=== PATIENT | male | born 1990 | race Two or more races ===

== ENCOUNTER 2023-05-28 02:43 | Emergency (ER) | payer OTHER, SELFPAY ==
[2023-05-28 02:47] VITALS: BP 136/85
[2023-05-28 03:06] LABS: Hematocrit 39.7 % (39.0-52.0); Mean Corp Hgb Conc. 35.3 g/dL (33.0-37.0); Mean Corpuscular Hgb 30.9 pg (27.0-31.0); Mean Corpuscular Volume 87.6 fL (80.0-94.0); Mean Platelet Volume 9.3 fL (7.4-10.4); Platelet Count 349 10^3/uL (130-400); Red Blood Cell Count 4.53 10^6/uL (4.70-6.10); Red Cell Dist. Width 12.1 % (11.5-14.5); White Blood Cell Count 10.8 10^3/uL (4.8-10.8)
[2023-05-28 03:07] LABS: Urine Albumin Negative (Neg - Trace); Urine Bilirubin Negative (Negative); Urine Character Clear (Clear); Urine Color Yellow; Urine Glucose Negative (Negative); Urine Ketone Negative (Negative); Urine Leukocyte Negative (Negative); Urine Nitrite Negative (Negative); Urine Occult Blood 3+ (Negative); Urine Specific Gravity 1.025 (<1.030); Urine Urobilinogen Negative (Neg - 1+)
[2023-05-28 03:18] LABS: Urine Squamous Cell 0-2 /LPF (Few)
[2023-05-28 03:19] LABS: Urine Red Blood Cell 60-70 /HPF (0-2); Urine White Cell None Seen /HPF (0-5)
[2023-05-28 03:21] LABS: ALT (SGPT) 40 U/L (0-50); AST (SGOT) 30 U/L (17-59); Albumin 4.6 g/dl (3.5-5.0); Alkaline Phosphatase 111 U/L (38-126); Blood Urea Nitrogen 17 mg/dl (9-20); Calcium 9.2 mg/dl (8.4-10.2); Carbon Dioxide 25 mmol/L (22-30); Chloride 107 mmol/L (98-107); Glucose 134 mg/dl (70-99); Sodium 140 mmol/L (135-145); Total Bilirubin 0.5 mg/dl (0.2-1.3); Total Protein 7.2 g/dl (6.3-8.2); eGFR > 60.00
--- NOTE | 2023-05-28 03:38 | ED.GENMED ---
History of Present Illness
<MAYRA Perez - Last Filed: 05/28/23 06:13>
General
Chief Complaint: Flank Pain
Source: patient and significant other
Exam Limitations: none
Time Seen by Provider: 05/28/23 03:31
Nursing documentation reviewed up to this point in time: agreed with
Travel History
Have you had any contact with someone who has COVID-19?: No
Do you have any symptoms of coronavirus? Fever > 100 degrees, chills, cough, shortness of breath, sore throat, loss of taste or smell, muscle aches, or headache?: No
History of Present Illness
History of Present Illness:
Pt is a 32 yo male with PMH of renal calculi who presents today with sudden right sided flank pain that began at 1:40 am and woke him up. Pt has taken ibuprofen, 2 percocet, flomax, and zofran since then, last dose of percocet at 2 am. Patient has
associated nausea and vomiting. States pain is 8-9/10. Denies other abdominal pain, hematuria, fever.
Past History
<MAYRA Perez - Last Filed: 05/28/23 06:13>
Past History
ED Past Medical History: Psychiatric (depression takes Fluoxitine) and Other (Kidney stones)
ED Past Surgical History: Other (Abdominal surgery as a child)
Social History
Tobacco: Non-smoker
Drug: None
Personal: Single
Living: with family
Employment: Student
Family History
Family History: Other
Review of Systems
<MAYRA Perez - Last Filed: 05/28/23 06:13>
Review of Systems
Allergies reviewed?: Yes
All Other Systems: ROS reviewed and negative except as documented in HPI and ROS
Phy Exam
<MAYRA Perez - Last Filed: 05/28/23 06:13>
General Physical Exam
General Presentation: moderate distress
General Skin: warm and dry
General Mental: alert
General Hydration: appears well hydrated
ENT Exam
ENT Exam: neck supple, normocephalic and swallowing well
Eye Exam
Eye Exam: PERRL and conjunctiva normal
Skin Exam
Skin Exam: normal color and warm/dry
Psychiatric Exam
Psychiatric Exam: normal mood/affect
Course
<MAYRA Perez - Last Filed: 05/28/23 06:13>
Orders/Labs/Results
Orders:
Orders
05/28/23 02:57
CMP [Comprehensive Metabolic Panel] Urgent
Complete Blood Count/With Diff Urgent
Manual Differential Urgent
Urinalysis Urgent
Date Specimen was Collected: 05/28/23
Time Specimen was Collected: 02:50
Urine Microscopic Urgent
Date Specimen was Collected: 05/28/23
Time Specimen was Collected: 02:50
05/28/23 03:10
Abdomen/Pelvis wo Contrast CT [CT Abd/pelvis Wo Iv Cont] Urgent
Comment:
Reason For Exam: right flank pain
05/28/23 03:39
HYDROmorphone [Dilaudid] 1 mg IV NOW STA
Ondansetron Injectable [Zofran] 4 mg IV NOW STA
05/28/23 04:10
Ketorolac [Toradol] 30 mg IV NOW STA
05/28/23 04:11
0.9% Sodium Chloride 1000 ml [Nss] 1,000 ml IV BOLUS
Abnormal Lab Results
05/28/23
02:57
RBC 4.53 L 10^6/uL
(4.70-6.10)
Segmented Neutrophils 37 L %
(42-75)
Glucose 134 H mg/dl
(70-99)
Urine Occult Blood 3+ A
(Negative)
Urine RBC 60-70 A /HPF
(0-2)
05/28/23 02:57
05/28/23 02:57
Vital Signs
Initial and Last Documented VS:
Initial Vital Signs
Temp Pulse Resp BP Pulse Ox
97.9 F 90 26 136/85 100
05/28/23 02:47 05/28/23 02:47 05/28/23 02:47 05/28/23 02:47 05/28/23 02:47
Last Documented Vital Signs
Temp Pulse Resp BP Pulse Ox
97.9 F 91 21 123/83 99
05/28/23 02:47 05/28/23 04:47 05/28/23 04:47 05/28/23 06:00 05/28/23 04:00
<Destin Lopez, DO - Last Filed: 05/28/23 06:20>
Orders/Labs/Results
Orders:
Orders
05/28/23 02:57
CMP [Comprehensive Metabolic Panel] Urgent
Complete Blood Count/With Diff Urgent
Manual Differential Urgent
Urinalysis Urgent
Date Specimen was Collected: 05/28/23
Time Specimen was Collected: 02:50
Urine Microscopic Urgent
Date Specimen was Collected: 05/28/23
Time Specimen was Collected: 02:50
05/28/23 03:10
Abdomen/Pelvis wo Contrast CT [CT Abd/pelvis Wo Iv Cont] Urgent
Comment:
Reason For Exam: right flank pain
05/28/23 03:39
HYDROmorphone [Dilaudid] 1 mg IV NOW STA
Ondansetron Injectable [Zofran] 4 mg IV NOW STA
05/28/23 04:10
Ketorolac [Toradol] 30 mg IV NOW STA
05/28/23 04:11
0.9% Sodium Chloride 1000 ml [Nss] 1,000 ml IV BOLUS
Abnormal Lab Results
05/28/23
02:57
RBC 4.53 L 10^6/uL
(4.70-6.10)
Segmented Neutrophils 37 L %
(42-75)
Glucose 134 H mg/dl
(70-99)
Urine Occult Blood 3+ A
(Negative)
Urine RBC 60-70 A /HPF
(0-2)
05/28/23 02:57
05/28/23 02:57
Vital Signs
Initial and Last Documented VS:
Initial Vital Signs
Temp Pulse Resp BP Pulse Ox
97.9 F 90 26 136/85 100
05/28/23 02:47 05/28/23 02:47 05/28/23 02:47 05/28/23 02:47 05/28/23 02:47
Last Documented Vital Signs
Temp Pulse Resp BP Pulse Ox
97.9 F 91 21 123/83 99
05/28/23 02:47 05/28/23 04:47 05/28/23 04:47 05/28/23 06:00 05/28/23 04:00
<MAYRA Perez - Last Filed: 05/28/23 06:13>
*Critical Care Note
Total Time (30-74mins, 75-104mins- exclusive of procedures): Not Applicable
<Destin Lopez DO - Last Filed: 05/28/23 06:20>
Update Note
Update Note:
CT abdomen/pelvis without contrast
Comparison 11/29/2018
IMPRESSION:
-A calculus in the very proximal right ureter measures 4 x 3 x 3 mm. Minimal right hydronephrosis. Additional nonobstructing calculi are present in the bilateral kidneys, measuring up to 5 mm on the right and 2 mm on the left; mild medullary
nephrocalcinosis. Cyst in the left interpolar kidney. Unremarkable urinary bladder.
-Otherwise, no acute abnormality on noncontrast CT abdomen/pelvis. Incidental note of a small right hydrocele.
ED Attending Note
<MAYRA Perez - Last Filed: 05/28/23 06:13>
-
Portions of this chart may have been created with voice recognition software.� Occasional wrong word or��sound alike� substitutions may have occurred due to the inherent limitations of voice recognition software.
<Destin Lopez DO - Last Filed: 05/28/23 06:20>
ED Attending Note
Patient seen and examined by attending physician: Yes
ED Attending Note:
This a pleasant 32-year-old male that presents with right-sided flank pain. This awakened him from sleep at 140 in the morning. He has a history of kidney stones and states that this feels similar. He did take ibuprofen and Percocet as well is on
Flomax. He states that the pain was not relieved. He does report some nausea and vomiting. Patient was seen in conjunction with the PA student. I have reviewed and agree with the history and treatment plan presented. On my independent physical
exam, patient is awake, alert, and oriented x3, moderate acute distress. Patient is in no respiratory distress. Moves all 4 extremities. Mentating appropriately. Skin is warm and dry.
CT abdomen/pelvis without contrast
Comparison 11/29/2018
IMPRESSION:
-A calculus in the very proximal right ureter measures 4 x 3 x 3 mm. Minimal right hydronephrosis. Additional nonobstructing calculi are present in the bilateral kidneys, measuring up to 5 mm on the right and 2 mm on the left; mild medullary
nephrocalcinosis. Cyst in the left interpolar kidney. Unremarkable urinary bladder.
-Otherwise, no acute abnormality on noncontrast CT abdomen/pelvis. Incidental note of a small right hydrocele.
05/28/2023 0603 AM: Patient is resting comfortably in the bed. He is in 1 out of 10 flank pain. Patient has had several kidney stones in the past. He states that he feels well enough to go home. He will follow-up with urology as needed. He does
have some prescriptions at home including Flomax, and a few Percocet. I will prescribe several more Percocet and Voltaren. Patient to follow-up with urology.
Discharge Plan
Departure
Patient Disposition: Home (Routine Discharge)
Date of Disposition: 05/28/23
Time of Disposition: 06:04
Patient with high blood pressure during this ER visit?: Yes
Condition: Good
Discharge Problem:
Kidney stone on right side
Instructions: Kidney Stones (DC), Flank Pain (DC), How to Strain Your Urine, Narcotic Pain Medication
Prescriptions:
New
oxycodone-acetaminophen [Percocet] 5-325 mg Tablet
1 tab PO Q4HPRN PRN (Reason: pain) Qty: 10 0RF
diclofenac sodium 75 mg tablet,delayed release (DR/EC)
75 mg PO BID Qty: 10 0RF
Referrals:
Nithin Hackett MD [Active] - As needed
Nika Sheldon PA [Family Provider] -
Activity Restrictions/Additional Instructions:
Your prescriptions were sent electronically to the pharmacy that you specified.
It was a pleasure meeting you and taking part in your care. We hope for your continued healing and wellness.
Please read discharge instructions in their entirety. However, they are for general education and may not describe your exact diagnosis at discharge. Information on your ER visit and medical conditions were discussed with you along with appropriate
follow up information...
If indicated, please take your medications as instructed and indicated on discharge paperwork.
Please schedule a follow up appointment as directed. Call to schedule an appointment
Please return to the emergency department with ANY change in, persisting, or worsening of symptoms. If any of your symptoms do not improve, or persist, or become more severe within 6-12 hours, please return to the emergency department for further
care.
Please return to the emergency department if you develop a headache, neck pain/stiffness, fever greater than 100.4F, chest pain, shortness of breath, persistent nausea, vomiting, slurred speech, difficulty walking, numbness/tingling, weakness, signs
of infection or any other symptoms that are worrisome to you.
If you have any questions or concerns please do not hesitate to call the Hospital at or E-mail me directly at [email or web address]
Interventions
Interventions:
*Risk Screen - Suicide Last Done: 05/28/23 02:47
*General Assessment Last Done: 05/28/23 03:46
*Neglect/Abuse Screening Last Done: 05/28/23 02:47
ED- Fall Risk Assessment Last Done: 05/28/23 03:47
*ED COVID-19 Vaccine History Last Done: 05/28/23 03:46
VL-Zwwcho-Bfwavgwrdx Assessment Last Done: 05/28/23 03:47
ED-Male Genitourinary Assessment Last Done: 05/28/23 03:47
[2023-05-28 03:42] VITALS: BP 124/84
[2023-05-28] MEDS: ZOFRAN 4 MG IV (03:43)
[2023-05-28] MEDS: DILAUDID 1 MG IV (03:43)
[2023-05-28 03:45] VITALS: BMI 26.4
[2023-05-28 03:46] VITALS: BP 124/84
[2023-05-28 03:58] LABS: Absolute Neutrophils -Man Diff 3.9 10^3/uL (1.4-6.5); Band Neutrophils 0 % (0-3); Eosinophils 1 % (0-6); Monocytes 5 % (2-9); Normal RBC Morphology Yes; Platelets Checked Yes; Segmented Neutrophils 37 % (42-75)
[2023-05-28 03:59] LABS: Atypical Lymphocytes 9 %; Lymphocytes 48 % (20-51); Total Cells Counted 100
[2023-05-28 04:00] VITALS: BP 120/83
[2023-05-28] MEDS: NSS 1000 IV (04:16)
[2023-05-28] MEDS: TORADOL 30 MG IV (04:16)
[2023-05-28 05:12] VITALS: BP 115/78
[2023-05-28 06:00] VITALS: BP 123/83
== END 2023-05-28 06:00 | disposition home or self-care (01) ==
LOC: EMR 02:43
PROVIDERS: EMERGENCY PHYSICIAN Student in an Organized Health Care Education/Training Program; FAMILY PHYSICIAN Physician Assistant
DX: N13.2 Hydronephrosis with renal and ureteral calculous obstruction (principal)
CPT/HCPCS: 99284; 96374; 96375 ×2; 96361; 74176; 80053; 81003; 81015; 85025

== ENCOUNTER → 2023-09-15 08:32 | Outpatient (REF) | payer OTHER, SELFPAY | LOC: RAD 08:32 | PROVIDERS: ATTENDING PHYSICIAN Urology; FAMILY PHYSICIAN Family Medicine | DX: N20.0 Calculus of kidney (principal) | CPT/HCPCS: 74019 ==